=== PATIENT | male | born 1950 | race Caucasian/White ===

== ENCOUNTER 2019-02-27 17:33 | Emergency (ER) | payer MEDICARE, OTHER ==
[~2019-02-27] VITALS: Ht 175.3 cm; Wt 75.0 kg
[~2019-02-27 17:33] MED LIST: ALBU17IN INH; ALPH0.156 OU; ASPI81TA26 PO; ATEN25TA PO; CELE1CAP4 PO; CYCL10TA PO; FLOV50AE INH; HYDR-3716 PO; LATA0.0013 OD; NAPR-885 PO; NORT50CA PO; OMEP40CA97 PO; REST30CA PO; SERT-138 PO; SPIR-10 PO; TOPI200T7 PO; VYTO10TA25 PO
[2019-02-27 18:29] LABS: BASO # 0.1 10^3/uL (0.0-0.2); BASO % 0.9 % (0.0-1.0); EOS # 0.4 10^3/uL (0.0-0.5); EOS % 7.6 % (0.0-3.0); HEMATOCRIT 38.2 % (42.0-52.0); MEAN CORPUSCULAR HEMOGLOBIN 29.1 pg (27.0-33.0); MEAN CORPUSCULAR HGB CONC 31.4 g/dl (32.0-36.5); MEAN CORPUSCULAR VOLUME 92.7 fl (80.0-96.0); MONO # 0.8 10^3/uL (0.0-0.8); MONO % 13.6 % (0.0-5.0); NEUTROPHILS # 2.4 10^3/uL (1.5-8.5); NEUTROPHILS % 42.2 % (36.0-66.0); PLATELET COUNT, AUTOMATED 183 10^3/uL (150-450); RED BLOOD COUNT 4.12 10^6/uL (4.30-6.10); WHITE BLOOD COUNT 5.7 10^3/uL (4.0-10.0)
--- NOTE | 2019-02-27 18:39 | REPVR ---
PROCEDURE INFORMATION: Exam: CT Head Without Contrast Exam date and time: 02/27/2019 5:58 PM Age: 68 years old Clinical history: Pain; Headache; Additional info: Trauma TECHNIQUE: Imaging protocol: Computed tomography of the head without contrast. Radiation optimization: All CT scans at this facility use at least one of these dose optimization techniques: automated exposure control; mA and/or kV adjustment per patient size (includes targeted exams where dose is matched to clinical indication); or iterative reconstruction. COMPARISON: No relevant prior studies available. FINDINGS: Brain: There is mild age-related parenchymal volume loss. White matter changes are demonstrated in the subcortical, centrum semiovale and periventricular white matter consistent with age related small vessel white matter angiopathic gliosis. Ventricles: The degree of ventricular dilatation is normal for age and/or degree of atrophy present. Bones/joints: Unremarkable. No acute fracture. Sinuses: Visualized sinuses are unremarkable. No fluid levels. Mastoid air cells: Visualized mastoid air cells are well aerated. Soft tissues: Unremarkable. Nasal cavity: Nasal polyposis. IMPRESSION: 1. There is mild age-related parenchymal volume loss. White matter changes are demonstrated in the subcortical, centrum semiovale and periventricular white matter consistent with age related small vessel white matter angiopathic gliosis. 2. The degree of ventricular dilatation is normal for age and/or degree of atrophy present. 3. No acute findings. Electronically signed by: Silvio Duvall On 02/27/2019 18:39:14 PM
--- NOTE | 2019-02-27 18:49 | REPVR ---
PROCEDURE INFORMATION: Exam: CT Cervical Spine Without Contrast Exam date and time: 02/27/2019 5:58 PM Age: 68 years old Clinical history: Neck pain; Additional info: Trauma TECHNIQUE: Imaging protocol: Computed tomography images of the cervical spine without contrast. Radiation optimization: All CT scans at this facility use at least one of these dose optimization techniques: automated exposure control; mA and/or kV adjustment per patient size (includes targeted exams where dose is matched to clinical indication); or iterative reconstruction. COMPARISON: CR SPINE CERVICAL W/AP/FLEX/EXT 08/19/2014 9:16 AM FINDINGS: Vertebrae: Reversal of normal cervical lordosis. Slight anterolisthesis of C4 and C5 most likely degenerative. Correlation with clinical exam is suggested to exclude changes related to a ligamentous injury. Multilevel facet joint arthropathy demonstrated as well. Mild levoscoliosis. Discs/Spinal canal/Neural foramina: There are degenerative changes demonstrated in the atlantoaxial joint with osteophytes and joint space narrowing. The transverse ligament thickened. Disc space narrowing at C4-C5, C5-C6, C6-C7 and C7-T1. Disc space narrowing also demonstrated at T1-T2. Prominent intervertebral osteophytes in the mid and lower cervical spine. Mild foraminal narrowing on the right at C2, moderate to severe bilateral foraminal narrowing at C3, severe foraminal narrowing on the right and mild foraminal narrowing on the left at C4, mild bilateral foraminal narrowing at C5, mild foraminal narrowing on the right at C6, and mild foraminal narrowing on the right at C7. There are multilevel disc osteophyte complexes from C3-C4 through C7-T1, most pronounced at C5-C6 where left paracentral disc protrusion mildly impinges on the left hemicord and narrows the proximal ipsilateral neural foramen. Soft tissues: Unremarkable. Mastoid air cells: Partial opacification of the mastoid air cells bilaterally consistent with mild mastoiditis. Lungs: Mild emphysematous changes in both lung apices. IMPRESSION: 1. Partial opacification of the mastoid air cells bilaterally consistent with mild mastoiditis. 2. Slight anterolisthesis of C4 and C5 most likely degenerative. Correlation with clinical exam is suggested to exclude changes related to a ligamentous injury. 3. Degenerative spondylosis with multilevel foraminal stenosis and disc osteophyte complexes as described above. Mild left kanwal cord impingement at C5-C6 as described above. Electronically signed by: Silvio Duvall On 02/27/2019 18:48:46 PM
--- NOTE | 2019-02-27 18:51 | REPVR ---
PROCEDURE INFORMATION: Exam: CT Maxillofacial Without Contrast Exam date and time: 02/27/2019 5:58 PM Age: 68 years old Clinical history: Face pain; Additional info: Trauma TECHNIQUE: Imaging protocol: Computed tomography images of the face without contrast. Radiation optimization: All CT scans at this facility use at least one of these dose optimization techniques: automated exposure control; mA and/or kV adjustment per patient size (includes targeted exams where dose is matched to clinical indication); or iterative reconstruction. COMPARISON: No relevant prior studies available. FINDINGS: Orbits: Orbits are normal. Globes are unremarkable. Mastoid air cells: Bilateral partial opacification of the mastoid sinuses consistent with mild mastoiditis. Sinuses: Mild inflammatory changes in the ethmoid sinuses. Bones/joints: No acute fracture. Nasal cavity: Nasal polyposis. Vasculature: Calcifications intracranial carotid arteries. Soft tissues: Unremarkable. IMPRESSION: No acute findings. Electronically signed by: Silvio Duvall On 02/27/2019 18:51:02 PM
[2019-02-27 19:04] LABS: ACETAMINOPHEN LEVEL < 2.0 UG/ML (10.0-30.0); ALBUMIN 3.7 GM/DL (3.2-5.2); ALT/SGPT 28 U/L (12-78); BILIRUBIN,DIRECT < 0.1 MG/DL (0.0-0.2); BILIRUBIN,TOTAL 0.1 MG/DL (0.2-1.0); BLOOD UREA NITROGEN 8 MG/DL (7-18); CALCIUM LEVEL 8.5 MG/DL (8.8-10.2); CARBON DIOXIDE LEVEL 23 MEQ/L (21-32); CHLORIDE LEVEL 101 MEQ/L (98-107); CK-MB VALUE MASS 2.4 NG/ML (<3.6); CPK CREATINE PHOSPHOKINASE 67 U/L (39-308); CREATININE FOR GFR 0.95 MG/DL (0.70-1.30); GLOMERULAR FILTRATION RATE > 60.0 (>49); GLUCOSE, FASTING 76 MG/DL (70-100); MB/CK RELATIVE INDEX 3.58 (< OR =4); POTASSIUM SERUM 4.4 MEQ/L (3.5-5.1); SALICYLATE LEVEL 2.4 MG/DL (5.0-30.0); SODIUM LEVEL 135 MEQ/L (136-145); TOTAL PROTEIN 7.6 GM/DL (6.4-8.2); TROPONIN I < 0.02 NG/ML (< 0.10); VALPROIC ACID (DEPAKOTE) 20.4 UG/ML (50.0-100.0)
[2019-02-27 19:04] LABS: AMPHETAMINES LEVEL URINE NEGATIVE (NEGATIVE); BARBITURATES URINE NEGATIVE (NEGATIVE); BENZODIAZEPINES URINE NEGATIVE (NEGATIVE); CANNABINOIDS URINE POSITIVE (NEGATIVE); COCAINE METABOLITE URINE NEGATIVE (NEGATIVE); METHADONE URINE NEGATIVE (NEGATIVE); OPIATES URINE POSITIVE (NEGATIVE); PHENCYCLIDINE URINE NEGATIVE (NEGATIVE)
--- NOTE | 2019-02-27 19:21 | REP ---
Portable chest x-ray: Single view. History: Altered mental status. Comparison chest x-ray: November 02, 2005. Findings: There are healed or healing rib fractures at two adjacent anterior ribs on the right and one on the left. No other bony abnormality is seen. The lungs are well inflated and clear. The pleural angles are sharp. Heart size is normal. EKG monitoring electrodes are seen. There is a mild dextroconvex curvature in the thoracic spine. Impression: No active disease. Healed versus healing bilateral rib fractures. Electronically Signed by Todd Hickman MD 02/27/2019 08:05 P
--- NOTE | 2019-02-27 20:23 | ECGEPIP ---
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
[2019-02-27 20:45] VITALS: BP 156/77
--- NOTE | 2019-02-28 08:05 | ED PDOC ---
Post-Departure Follow-Up dr stewart faxed formal report oif ct c spine for fu Yamile Ferro MD Feb 28, 2019 08:05
== END 2019-02-27 21:32 | disposition home or self-care (01) ==
LOC: M ED 17:33 → EDBD 17:33 → M ED 21:32
DX: F10.129 Alcohol abuse with intoxication, unspecified (principal); I45.19 Other right bundle-branch block; J44.9 Chronic obstructive pulmonary disease, unspecified; I10 Essential (primary) hypertension; F33.9 Major depressive disorder, recurrent, unspecified; Z79.899 Other long term (current) drug therapy; Z79.82 Long term (current) use of aspirin; Z88.0 Allergy status to penicillin; Z88.8 Allergy status to other drugs, medicaments and biological substances; F17.210 Nicotine dependence, cigarettes, uncomplicated
CPT/HCPCS: 36415; 70450; 70486; 71045; 72125; 80048; 80076; 80164; 80307; 82140; 82550; 82553; 84443; 84484; 85025; 93005; 93041; 94760; 99285; G0480

== ENCOUNTER 2020-05-15 15:49 | Emergency (ER) | payer MEDICARE ==
[~2020-05-15] VITALS: Ht 175.3 cm; Wt 60.2 kg
[~2020-05-15 15:49] MED LIST changes: +CYCL-707 PO; -CYCL10TA PO
[2020-05-15] MEDS ORDERED: ISOVUE-370 76% 100ML VIAL As Ordered ONE (16:14)
[2020-05-15 16:19] LABS: BASO % 0.7 % (0.0-1.0); EOS # 0.3 10^3/uL (0.0-0.5); EOS % 5.5 % (0.0-3.0); HEMATOCRIT 32.2 % (42.0-52.0); HEMOGLOBIN 9.7 g/dl (13.5-17.5); LYMPH # 1.3 10^3/uL (1.5-5.0); LYMPH % 22.1 % (24.0-44.0); MEAN CORPUSCULAR HEMOGLOBIN 27.7 pg (27.0-33.0); MEAN CORPUSCULAR HGB CONC 30.1 g/dl (32.0-36.5); MONO # 0.6 10^3/uL (0.0-0.8); MONO % 9.6 % (2.0-8.0); NEUTROPHILS # 3.7 10^3/uL (1.5-8.5); NEUTROPHILS % 61.6 % (36.0-66.0); PLATELET COUNT, AUTOMATED 359 10^3/uL (150-450); WHITE BLOOD COUNT 6.1 10^3/uL (4.0-10.0)
[2020-05-15 16:29] LABS: INR 0.97; PROTHROMBIN TIME 13.1 SECONDS (12.5-14.3)
[2020-05-15 16:30] LABS: PARTIAL THROMBOPLASTIN TIME 34.3 SECONDS (24.2-38.5)
[2020-05-15 16:45] VITALS: BP 175/82
--- NOTE | 2020-05-15 16:45 | REP ---
INDICATION: fall injury. COMPARISON: 02/27/2019. TECHNIQUE: CT BRAIN PERFORMED IN THE AXIAL PLANE. CORONAL RECONSTRUCTION IMAGES ARE PERFORMED. FINDINGS: There is [id number] atrophy. There is no midline shift or mass effect. There are mild chronic periventricular small vessel ischemic changes, chronic in nature. There is no acute intracranial hemorrhage. There is no extra-axial fluid collection. There are vascular calcifications in the carotid siphons. There is no fracture of the visualized osseous structures. There is mild mucosal thickening in the left frontoethmoidal region. IMPRESSION: No acute intracranial hemorrhage or skull fracture. Stable chronic changes. <Electronically signed by Mitchel Amato > 05/15/20 [id number]
[2020-05-15 16:52] LABS: ALBUMIN 3.3 GM/DL (3.2-5.2); ALT/SGPT 57 U/L (12-78); BILIRUBIN,DIRECT < 0.1 MG/DL (0.0-0.2); BILIRUBIN,TOTAL 0.1 MG/DL (0.2-1.0); CK-MB VALUE MASS 1.8 NG/ML (<3.6); CPK CREATINE PHOSPHOKINASE 44 U/L (39-308); FREE T4 0.72 NG/DL (0.76-1.46); LIPASE 555 U/L (73-393); MB/CK RELATIVE INDEX 4.09 (< OR =4); NT-PRO BNP 316 PG/ML (<125); TOTAL PROTEIN 7.5 GM/DL (6.4-8.2); TROPONIN I < 0.02 NG/ML (< 0.10)
--- NOTE | 2020-05-15 16:52 | REP ---
INDICATION: fall injury. COMPARISON: 02/27/2019. TECHNIQUE: CT cervical spine performed in the axial plane, with sagittal and coronal reconstruction images performed. FINDINGS: See no evidence of acute fracture or dislocation. There is mild reversal of normal cervical lordosis. There is mild spurring of C3. There is moderate spurring of C4 through T2. There is mild disc space narrowing at C3-4 with moderate narrowing of all levels inferior to that. There is minimal anterior listhesis of C4 unchanged. No abnormal density is seen in the spinal canal. IMPRESSION: No evidence of acute fracture or dislocation. Stable arthritic changes diffusely. <Electronically signed by Mitchel Amato > 05/15/20 [id number]
--- NOTE | 2020-05-15 17:08 | REP ---
INDICATION: chest pain/trauma. COMPARISON: None. TECHNIQUE: CT angiogram chest performed following the intravenous administration of 100 cc of Isovue 370. Sagittal and coronal reconstruction images are performed. FINDINGS: Lungs: There are scattered diffuse bilateral fibro atelectatic changes, right greater than left. There is no pneumothorax. Mediastinum: No adenopathy. Pulmonary arteries: No evidence of pulmonary embolism. Pushpa: No adenopathy. Axilla: No adenopathy. Pleura: No effusion. Heart: Not enlarged. Thoracic aorta: No aneurysm or dissection. Upper abdominal structures: There is diffuse fatty infiltration of the liver. Visualized osseous structures: There are fractures of the right anterolateral 3rd through 7th ribs. The right 4th through 6th ribs are fractured in 2 places. Few other old right rib fractures are seen inferiorly and posteriorly. Several old left inferior fractures are also seen. There are degenerative changes of the spine without compression fracture.. IMPRESSION: No CT evidence of pulmonary embolism. No infiltrate seen. Fibrotic changes with mild right lung atelectatic changes. There are fractures of the right anterolateral 3rd through 7th ribs. The right 4th through 6th ribs are fractured in 2 places. No pneumothorax. No pleural effusion. <Electronically signed by Mitchel Amato > 05/15/20 [id number]
--- NOTE | 2020-05-15 17:13 | REP ---
INDICATION: CHEST PAIN. COMPARISON: 02/27/2019. TECHNIQUE: SINGLE PORTABLE AP VIEW OF THE CHEST WAS PERFORMED. FINDINGS: There are fractures of the right 3rd through 7th ribs. There is mild adjacent parenchymal opacity. There is no pneumothorax or significant pleural effusion. The heart is normal in size. There is mild calcification of the thoracic aorta.There are old inferior left rib fractures. IMPRESSION: Right 3rd through 7th rib fractures. Mild adjacent parenchymal opacity. No pneumothorax or pleural effusion. <Electronically signed by Mitchel Amato > 05/15/20 [id number]
--- NOTE | 2020-05-15 20:35 | ECGEPIP ---
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
== END 2020-05-15 17:10 | disposition left against medical advice (07) ==
LOC: M ED 15:49
DX: R55 Syncope and collapse (principal); R07.9 Chest pain, unspecified; R06.02 Shortness of breath; I10 Essential (primary) hypertension; J44.9 Chronic obstructive pulmonary disease, unspecified; Z79.899 Other long term (current) drug therapy; Z79.82 Long term (current) use of aspirin; Z88.0 Allergy status to penicillin; Z88.8 Allergy status to other drugs, medicaments and biological substances; F17.210 Nicotine dependence, cigarettes, uncomplicated; F12.20 Cannabis dependence, uncomplicated
CPT/HCPCS: 36415; 70450; 71045; 71275; 72125; 80047; 80076; 82077; 82550; 82553; 83690; 83880; 84439; 84443; 84484; 85025; 85610; 85730; 93005; 93041; 94760; 99284; Q9967

== ENCOUNTER 2020-07-18 18:33 | Emergency (ER) | payer MEDICAID, MEDICARE, OTHER ==
[~2020-07-18] VITALS: Ht 175.3 cm; Wt 77.0 kg
[~2020-07-18 18:33] MED LIST changes: +OMEP40CA4 PO; -OMEP40CA97 PO
[2020-07-18 20:13] LABS: AMPHETAMINES LEVEL URINE NEGATIVE (NEGATIVE); BARBITURATES URINE NEGATIVE (NEGATIVE); BENZODIAZEPINES URINE NEGATIVE (NEGATIVE); CANNABINOIDS URINE POSITIVE (NEGATIVE); COCAINE METABOLITE URINE NEGATIVE (NEGATIVE); METHADONE URINE NEGATIVE (NEGATIVE); OPIATES URINE NEGATIVE (NEGATIVE); PHENCYCLIDINE URINE NEGATIVE (NEGATIVE)
[2020-07-18 20:15] LABS: HEMATOCRIT 38.7 % (42.0-52.0); HEMOGLOBIN 12.3 g/dl (13.5-17.5); MEAN CORPUSCULAR HEMOGLOBIN 26.7 pg (27.0-33.0); MEAN CORPUSCULAR HGB CONC 31.8 g/dl (32.0-36.5); MEAN CORPUSCULAR VOLUME 84.1 fl (80.0-96.0); PLATELET COUNT, AUTOMATED 261 10^3/uL (150-450); WHITE BLOOD COUNT 4.8 10^3/uL (4.0-10.0)
[2020-07-18 21:05] LABS: ACETAMINOPHEN LEVEL < 2.0 UG/ML (10.0-30.0); ALBUMIN 4.1 GM/DL (3.2-5.2); ALT/SGPT 115 U/L (12-78); BILIRUBIN,DIRECT 0.2 MG/DL (0.0-0.2); BILIRUBIN,TOTAL 0.4 MG/DL (0.2-1.0); BLOOD UREA NITROGEN 6 MG/DL (7-18); CALCIUM LEVEL 9.4 MG/DL (8.8-10.2); CARBON DIOXIDE LEVEL 21 MEQ/L (21-32); CHLORIDE LEVEL 94 MEQ/L (98-107); CK-MB VALUE MASS < 1.0 NG/ML (<3.6); CPK CREATINE PHOSPHOKINASE 83 U/L (39-308); CREATININE FOR GFR 1.25 MG/DL (0.70-1.30); ETHYL ALCOHOL (ETHANOL) 0.204 % (0.000-0.010); GLOMERULAR FILTRATION RATE > 60.0 (>49); GLUCOSE, FASTING 100 MG/DL (70-100); LIPASE 414 U/L (73-393); POTASSIUM SERUM 4.2 MEQ/L (3.5-5.1); SALICYLATE LEVEL 3.5 MG/DL (5.0-30.0); SODIUM LEVEL 133 MEQ/L (136-145); TOTAL PROTEIN 8.6 GM/DL (6.4-8.2); TROPONIN I < 0.02 NG/ML (< 0.10)
--- NOTE | 2020-07-18 22:43 | REPVR ---
PROCEDURE INFORMATION: Exam: CT Head Without Contrast Exam date and time: 07/18/2020 9:47 PM Age: 69 years old Clinical indication: Altered mental status/memory loss TECHNIQUE: Imaging protocol: Computed tomography of the head without contrast. Radiation optimization: All CT scans at this facility use at least one of these dose optimization techniques: automated exposure control; mA and/or kV adjustment per patient size (includes targeted exams where dose is matched to clinical indication); or iterative reconstruction. COMPARISON: 1. CT Head without contrast 2020-05-15 16:[address] Head without contrast 2019-02-27 17:54 FINDINGS: Brain: Diffuse moderate cerebral age related volume loss. Moderate patchy low attenuation in the white matter compatible with moderate chronic small vessel ischemic disease. No midline shift, mass, fluid collection, or evidence of hemorrhage. Cerebral ventricles: Ventricular enlargement proportional to volume loss. Bones/joints: Unremarkable. No acute fracture. Paranasal sinuses: Visualized sinuses are unremarkable. No fluid levels. Mastoid air cells: Visualized mastoid air cells are well aerated. Soft tissues: Unremarkable. IMPRESSION: Moderate involutional changes, no acute intracranial abnormality. Electronically signed by: Gomez Le On 07/18/2020 22:43:26 PM
--- NOTE | 2020-07-18 22:43 | REPVR ---
PROCEDURE INFORMATION: Exam: XR Chest Exam date and time: 07/18/2020 9:55 PM Age: 69 years old Clinical indication: Shortness of breath; Additional info: SOB TECHNIQUE: Imaging protocol: XR of the chest. Views: 2 views. COMPARISON: 1. MI PORTABLE CHEST X-RAY 2020-05-15 16:[address] ANGIO CHEST 2020-05-15 16:24 3. MI PORTABLE CHEST X-RAY 2019-02-27 18:44 FINDINGS: Lungs: Lucent expanded lungs, evidence for COPD/emphysema. Blunting the right costophrenic sulcus from a small effusion or atelectasis/infiltrate. Pleural spaces: Unremarkable. No pleural effusion. No pneumothorax. Heart/Mediastinum: Unremarkable. No cardiomegaly. Bones/joints: Chronic healed left 10th and 11th rib fracture deformities. Multiple chronic appearing right lateral rib fractures. IMPRESSION: 1. Lucent expanded lungs, evidence for COPD/emphysema. 2. Blunted right costophrenic sulcus from a small effusion or atelectasis/infiltrate. Electronically signed by: Gomez Le On 07/18/2020 22:43:03 PM
[2020-07-18] MEDS ORDERED: ASPIRIN 81 MG CHEW TABLET PO ONE (22:45)
[2020-07-18] MEDS ORDERED: ISOVUE-370 76% 100ML VIAL As Ordered ONE (23:10)
--- NOTE | 2020-07-19 00:05 | REPVR ---
PROCEDURE INFORMATION: Exam: CTA Chest With Contrast Exam date and time: 07/18/2020 11:24 PM Age: 69 years old Clinical indication: Chest pain; Additional info: Chest pain, SOB TECHNIQUE: Imaging protocol: Computed tomographic angiography of the chest with contrast. 3D rendering (Not supervised by radiologist): MIP and/or 3D reconstructed images were created by the technologist. Radiation optimization: All CT scans at this facility use at least one of these dose optimization techniques: automated exposure control; mA and/or kV adjustment per patient size (includes targeted exams where dose is matched to clinical indication); or iterative reconstruction. Contrast material: ISOVUE 370; Contrast volume: 75 ml; Contrast route: INTRAVENOUS (IV); COMPARISON: 1. CT ANGIO CHEST 2020-05-15 16:24 2. CR Chest, 2 view PA, Lat 2020-07-18 21:40 FINDINGS: Pulmonary arteries: No filling defects in the pulmonary arteries to suggest pulmonary emboli. Aorta: Unremarkable. No aortic aneurysm. No aortic dissection. Lungs: Moderate centrilobular pulmonary emphysema. Scattered mild bronchial wall thickening, and peripheral bronchial mucous plugging, question bronchiolitis. Couple small pulmonary nodules, not definitely present on the prior, with a nodule in the right lower lobe measuring 6 mm. Right basilar subsegmental atelectasis. Pleural spaces: Unremarkable. No pneumothorax. No pleural effusion. Heart: Unremarkable. No cardiomegaly. No pericardial effusion. Lymph nodes: Unremarkable. No enlarged lymph nodes. Liver: Enlarged low attenuating liver, evidence of hepatic steatosis. Stomach and bowel: Gastric wall thickening with incomplete distension. Trace density in the dependent gastric fundus could be secondary to an ulcer and contrast extravasation into the stomach versus ingested contents. Bones/joints: Acute right lateral 8-10th rib fracture with adjacent pleural thickening. Chronic appearing right 4th through 7th lateral rib fractures with nonunion. Multiple chronic left-sided rib fracture deformities. Chronic comminuted nonunion sternal fracture. Subjacent and overlying thickening. Soft tissues: Unremarkable. IMPRESSION: 1. No filling defects in the pulmonary arteries to suggest pulmonary emboli. 2. Acute right lateral 8-10th rib fracture with adjacent pleural thickening. 3. Gastric wall thickening with incomplete distension. Trace density in the dependent gastric fundus could be secondary to an ulcer and contrast extravasation into the stomach versus ingested contents. 4. Moderate centrilobular pulmonary emphysema. 5. Scattered mild bronchial wall thickening, and peripheral bronchial mucous plugging, question bronchiolitis. 6. Couple small pulmonary nodules, could be infectious or inflammatory, not definitely present on the prior, with a nodule in the right lower lobe measuring 6 mm. Consider follow-up. 7. Chronic comminuted nonunion sternal fracture. Subjacent and overlying thickening. COMMENTS: As per Fleischner Society guidelines for follow-up and management of pulmonary nodules: For patients at low risk (minimal or absent history of smoking and of other known risk factors), recommend follow-up chest CT at 12 months; if unchanged, no further follow-up. For patient at high risk (history of smoking or of other known risk factors), recommend initial follow-up chest CT at 6-12 months, then at 18-24 months if no interval change. Electronically signed by: Gomez Le On 07/19/2020 00:05:33 AM
[2020-07-19 01:27] LABS: CK-MB VALUE MASS < 1.0 NG/ML (<3.6); CPK CREATINE PHOSPHOKINASE 83 U/L (39-308); TROPONIN I < 0.02 NG/ML (< 0.10)
[2020-07-19] MEDS ORDERED: LORazepam 2 MG/ML VIAL IV STA (02:50)
[2020-07-19] MEDS ORDERED: NS 1,000 ML IV ONE (02:50)
[2020-07-19 05:00] VITALS: BP 187/88
--- NOTE | 2020-07-19 17:48 | ECGEPIP ---
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
--- NOTE | 2020-07-19 17:50 | ECGEPIP ---
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
--- NOTE | 2020-07-20 06:36 | ED PDOC ---
Post-Departure Follow-Up cxr report faxed to Yamile Desai MD July 20, 2020 06:36
== END 2020-07-19 05:42 | disposition home or self-care (01) ==
LOC: M ED 18:33
DX: S22.41XA Multiple fractures of ribs, right side, initial encounter for closed fracture (principal); X58.XXXA Exposure to other specified factors, initial encounter; Y92.89 Other specified places as the place of occurrence of the external cause; F10.239 Alcohol dependence with withdrawal, unspecified; I10 Essential (primary) hypertension; J44.9 Chronic obstructive pulmonary disease, unspecified; Z88.0 Allergy status to penicillin; Z88.8 Allergy status to other drugs, medicaments and biological substances; F12.20 Cannabis dependence, uncomplicated; Z79.899 Other long term (current) drug therapy; Z79.82 Long term (current) use of aspirin
CPT/HCPCS: 70450; 71046; 71275; 80048; 80076; 80143; 80307; 81001; 82077; 82550; 82553; 83690; 84443; 84484; 85027; 85379; 93005; 93041; 94760; 96361; 96374; 99285; J2060; Q9967

== ENCOUNTER 2021-11-11 16:27 | Inpatient (IN) | payer MEDICAID, MEDICARE ==
[~2021-11-11] VITALS: Ht 175.3 cm; Wt 69.9 kg
[~2021-11-11 16:27] MED LIST changes: +EZET-20 PO; -VYTO10TA25 PO
[2021-11-11] MEDS ORDERED: HYDR-3719 PO (17:22)
[2021-11-11] MEDS ORDERED: MELO7.5T35 PO (17:22)
[2021-11-11] MEDS ORDERED: FLUT11IN PO (17:22)
[2021-11-11] MEDS ORDERED: METO1TAB7 PO (17:22)
[2021-11-11] MEDS ORDERED: DIVA500T9 PO (17:22)
[2021-11-11] MEDS ORDERED: TEMA30CA PO (17:22)
[2021-11-11] MEDS ORDERED: NS 1,000 ML IV ONE (17:45)
[2021-11-11 18:58] LABS: BASO % 0.5 % (0.0-1.0); EOS # 0.1 10^3/uL (0.0-0.5); HEMATOCRIT 35.7 % (42.0-52.0); HEMOGLOBIN 11.3 g/dl (13.5-17.5); LYMPH # 0.8 10^3/uL (1.5-5.0); LYMPH % 9.5 % (24.0-44.0); MEAN CORPUSCULAR HEMOGLOBIN 28.5 pg (27.0-33.0); MEAN CORPUSCULAR HGB CONC 31.7 g/dl (32.0-36.5); MEAN CORPUSCULAR VOLUME 90.2 fl (80.0-96.0); MONO % 13.1 % (2.0-8.0); NEUTROPHILS # 5.9 10^3/uL (1.5-8.5); NEUTROPHILS % 75.1 % (36.0-66.0); PLATELET COUNT, AUTOMATED 241 10^3/uL (150-450); RED BLOOD COUNT 3.96 10^6/uL (4.30-6.10); WHITE BLOOD COUNT 7.9 10^3/uL (4.0-10.0)
[2021-11-11 19:08] LABS: INR 0.92; PROTHROMBIN TIME 12.7 SECONDS (12.7-14.5)
[2021-11-11 19:09] LABS: PARTIAL THROMBOPLASTIN TIME 34.7 SECONDS (25.9-37.0)
[2021-11-11 19:35] LABS: CK-MB VALUE MASS 1.3 NG/ML (<3.6); MB/CK RELATIVE INDEX 1.04 (< OR =4)
[2021-11-11] MEDS ORDERED: MIDAZOLAM INJ 2MG/2ML VIAL (J2250 PER 1MG) IV STA (19:37)
[2021-11-11] MEDS ORDERED: NS 1,250 ML in IV 1 EA IV ONE (19:40)
[2021-11-11 19:46] LABS: GLUCOSE, FASTING 107 MG/DL (70-100)
[2021-11-11 19:47] LABS: BLOOD UREA NITROGEN 16 MG/DL (7-18); CALCIUM LEVEL 9.4 MG/DL (8.8-10.2); CARBON DIOXIDE LEVEL 26 MEQ/L (21-32); CHLORIDE LEVEL 97 MEQ/L (98-107); CREATININE FOR GFR 1.18 MG/DL (0.70-1.30); ETHYL ALCOHOL (ETHANOL) 0.004 % (0.000-0.010); FREE T4 0.91 NG/DL (0.76-1.46); GLOMERULAR FILTRATION RATE > 60.0 (>42); MAGNESIUM LEVEL 2.1 MG/DL (1.8-2.4); POTASSIUM SERUM 3.5 MEQ/L (3.5-5.1); SODIUM LEVEL 134 MEQ/L (136-145)
[2021-11-11 20:03] LABS: AMPHETAMINES LEVEL URINE NEGATIVE (NEGATIVE); BARBITURATES URINE NEGATIVE (NEGATIVE); BENZODIAZEPINES URINE NEGATIVE (NEGATIVE); CANNABINOIDS URINE POSITIVE (NEGATIVE); COCAINE METABOLITE URINE NEGATIVE (NEGATIVE); METHADONE URINE NEGATIVE (NEGATIVE); OPIATES URINE NEGATIVE (NEGATIVE); PHENCYCLIDINE URINE NEGATIVE (NEGATIVE)
[2021-11-11] MEDS ORDERED: KETOROLAC 30 MG/ML 1ML VIAL IV ONE ×2 (20:20→21:00)
[2021-11-11] MEDS ORDERED: THIAMINE 100 MG TAB PO SCH (21:00)
[2021-11-11] MEDS ORDERED: ZOLO100T PO (22:03)
[2021-11-11] MEDS ORDERED: HOME MED LIST COMPLETE! XX SCH (22:05)
[2021-11-11] MEDS: LORazepam 2 MG TAB PO PRN ×2 (22:19→23:10)
[2021-11-11 23:55] LABS: RSV AMPLIFICATION NEGATIVE (NEGATIVE)
[2021-11-12] VITALS (30 sets, daily range): BP systolic 112–196; BP diastolic 76–95; O2SAT 91–100
[2021-11-12 01:20] LABS: ALBUMIN 3.8 GM/DL (3.2-5.2); BILIRUBIN,DIRECT 0.2 MG/DL (0.0-0.2); BILIRUBIN,TOTAL 0.5 MG/DL (0.2-1.0); TOTAL PROTEIN 8.1 GM/DL (6.4-8.2)
[2021-11-12] MEDS ORDERED: LORazepam 2 MG TAB PO PRN (01:45)
[2021-11-12] MEDS ORDERED: OXAZEPAM 15MG CAP PO ONE (02:00)
[2021-11-12] MEDS: DIVALPROEX 500MG *ER* TAB PO SCH ×2 (02:18→20:22)
[2021-11-12] MEDS ORDERED: hydrALAZINE 20MG/ML 1ML VIAL (J0360 PER 20MG) IV ONE (05:00)
[2021-11-12 05:09] LABS: BASO % 0.3 % (0.0-1.0); EOS # 0.1 10^3/uL (0.0-0.5); EOS % 1.4 % (0.0-3.0); HEMATOCRIT 36.3 % (42.0-52.0); HEMOGLOBIN 11.7 g/dl (13.5-17.5); LYMPH % 14.7 % (24.0-44.0); MEAN CORPUSCULAR HEMOGLOBIN 28.1 pg (27.0-33.0); MEAN CORPUSCULAR HGB CONC 32.2 g/dl (32.0-36.5); MEAN CORPUSCULAR VOLUME 87.1 fl (80.0-96.0); NEUTROPHILS # 4.5 10^3/uL (1.5-8.5); NEUTROPHILS % 68.1 % (36.0-66.0); PLATELET COUNT, AUTOMATED 185 10^3/uL (150-450); RED BLOOD COUNT 4.17 10^6/uL (4.30-6.10); WHITE BLOOD COUNT 6.6 10^3/uL (4.0-10.0)
[2021-11-12] MEDS: hydrALAZINE 20MG/ML 1ML VIAL (J0360 PER 20MG) IV SCH ×4 (05:31→18:51)
[2021-11-12 05:42] LABS: ALBUMIN 3.9 GM/DL (3.2-5.2); ALT/SGPT 37 U/L (12-78); BILIRUBIN,TOTAL 0.6 MG/DL (0.2-1.0); BLOOD UREA NITROGEN 13 MG/DL (7-18); CALCIUM LEVEL 9.4 MG/DL (8.8-10.2); CARBON DIOXIDE LEVEL 24 MEQ/L (21-32); CHLORIDE LEVEL 100 MEQ/L (98-107); CREATININE FOR GFR 0.97 MG/DL (0.70-1.30); GLOMERULAR FILTRATION RATE > 60.0 (>42); GLUCOSE, FASTING 138 MG/DL (70-100); POTASSIUM SERUM 3.1 MEQ/L (3.5-5.1); SODIUM LEVEL 134 MEQ/L (136-145); TOTAL PROTEIN 7.9 GM/DL (6.4-8.2)
[2021-11-12] MEDS: FLUTICASONE HFA 110 MCG 12 GM INHALER (FLOVENT) INH SCH ×2 (07:26→19:58)
[2021-11-12] MEDS ORDERED: MULTIVITAMINS/MINERALS THERAP 1 TAB PO SCH (09:00)
[2021-11-12] MEDS ORDERED: FOLIC ACID 1MG TAB PO SCH (09:00)
[2021-11-12] MEDS ORDERED: OXAZEPAM 15MG CAP PO SCH ×2 (10:00→14:00)
[2021-11-12] MEDS: LIDOCAINE 5% (LIDODERM) PATCH TD PRN (10:20)
[2021-11-12] MEDS: FOLIC ACID 1MG TAB PO SCH (10:21)
[2021-11-12] MEDS: OMEPRAZOLE 20MG CAP PO SCH (10:23)
[2021-11-12] MEDS: SIMVASTATIN 40 MG TAB PO SCH (10:23)
[2021-11-12] MEDS: SERTRALINE 100 MG TAB PO SCH (10:23)
[2021-11-12] MEDS: EZETIMIBE 10MG TABLET (ZETIA) PO SCH (10:23)
[2021-11-12] MEDS: NORTRIPTYLINE 25 MG CAP PO SCH ×2 (10:23→20:22)
[2021-11-12] MEDS: MULTIVITAMINS/MINERALS THERAP 1 TAB PO SCH (10:24)
[2021-11-12] MEDS: ENOXAPARIN 40MG/0.4ML SYRINGE (J1650 PER 10MG) SC SCH (10:24)
[2021-11-12] MEDS: THIAMINE 100 MG TAB PO SCH (10:24)
[2021-11-12] MEDS: METOPROLOL SUCC (TopROL XL) 50MG **XL** TAB PO SCH (10:28)
[2021-11-12] MEDS ORDERED: POTASSIUM CHLORIDE 10MEQ SR TABLET PO ONE ×2 (12:00→15:00)
[2021-11-12] MEDS ORDERED: NORCO, ANEXSIA 5/325MG TABLET (HYDROcodone/ACETAMINOPHEN) PO PRN (12:40)
[2021-11-12] MEDS: OXAZEPAM 10MG CAP PO SCH ×2 (14:40→21:46)
[2021-11-12] MEDS: **NOTE PATIENT COMMENT** MISC XX SCH (20:22)
[2021-11-13] VITALS (31 sets, daily range): BP systolic 120–161; BP diastolic 82–95; O2SAT 84–99
[2021-11-13] MEDS: OXAZEPAM 10MG CAP PO SCH ×3 (05:45→21:40)
[2021-11-13] MEDS: hydrALAZINE 20MG/ML 1ML VIAL (J0360 PER 20MG) IV SCH ×4 (05:46→19:10)
[2021-11-13] MEDS: FLUTICASONE HFA 110 MCG 12 GM INHALER (FLOVENT) INH SCH ×2 (07:46→19:57)
[2021-11-13 08:04] LABS: BASO % 0.8 % (0.0-1.0); EOS # 0.3 10^3/uL (0.0-0.5); EOS % 6.3 % (0.0-3.0); HEMATOCRIT 35.5 % (42.0-52.0); LYMPH % 18.4 % (24.0-44.0); MEAN CORPUSCULAR HEMOGLOBIN 28.1 pg (27.0-33.0); MEAN CORPUSCULAR VOLUME 90.8 fl (80.0-96.0); MONO # 0.8 10^3/uL (0.0-0.8); MONO % 14.6 % (2.0-8.0); NEUTROPHILS # 3.1 10^3/uL (1.5-8.5); NEUTROPHILS % 59.1 % (36.0-66.0); PLATELET COUNT, AUTOMATED 177 10^3/uL (150-450); RED BLOOD COUNT 3.91 10^6/uL (4.30-6.10); WHITE BLOOD COUNT 5.3 10^3/uL (4.0-10.0)
[2021-11-13 08:26] LABS: ALBUMIN 3.5 GM/DL (3.2-5.2); ALT/SGPT 32 U/L (12-78); BILIRUBIN,TOTAL 0.5 MG/DL (0.2-1.0); BLOOD UREA NITROGEN 18 MG/DL (7-18); CALCIUM LEVEL 9.6 MG/DL (8.8-10.2); CARBON DIOXIDE LEVEL 24 MEQ/L (21-32); CHLORIDE LEVEL 103 MEQ/L (98-107); CREATININE FOR GFR 1.17 MG/DL (0.70-1.30); GLOMERULAR FILTRATION RATE > 60.0 (>42); GLUCOSE, FASTING 97 MG/DL (70-100); POTASSIUM SERUM 3.9 MEQ/L (3.5-5.1); SODIUM LEVEL 135 MEQ/L (136-145); TOTAL PROTEIN 7.3 GM/DL (6.4-8.2)
[2021-11-13] MEDS ORDERED: PREVNAR 13 VACCINE SYRINGE IM.IMMUN ONE (09:00)
[2021-11-13] MEDS: ENOXAPARIN 40MG/0.4ML SYRINGE (J1650 PER 10MG) SC SCH (09:45)
[2021-11-13] MEDS: EZETIMIBE 10MG TABLET (ZETIA) PO SCH (09:46)
[2021-11-13] MEDS: NORTRIPTYLINE 25 MG CAP PO SCH ×2 (09:46→20:31)
[2021-11-13] MEDS: FOLIC ACID 1MG TAB PO SCH (09:46)
[2021-11-13] MEDS: SERTRALINE 100 MG TAB PO SCH (09:46)
[2021-11-13] MEDS: MULTIVITAMINS/MINERALS THERAP 1 TAB PO SCH (09:46)
[2021-11-13] MEDS: SERTRALINE HCL 50 MG TAB PO SCH (09:46)
[2021-11-13] MEDS: OMEPRAZOLE 20MG CAP PO SCH (09:46)
[2021-11-13] MEDS: SIMVASTATIN 40 MG TAB PO SCH (09:46)
[2021-11-13] MEDS: METOPROLOL SUCC (TopROL XL) 50MG **XL** TAB PO SCH (09:47)
[2021-11-13] MEDS: THIAMINE 100 MG TAB PO SCH (09:47)
[2021-11-13] MEDS: **NOTE PATIENT COMMENT** MISC XX SCH ×2 (09:48→20:32)
[2021-11-13] MEDS: LIDOCAINE 5% (LIDODERM) PATCH TD PRN (12:16)
[2021-11-13] MEDS: DIVALPROEX 500MG *ER* TAB PO SCH (20:30)
[2021-11-14] VITALS (10 sets, daily range): BP systolic 140–173; BP diastolic 73–96; O2SAT 93–98
[2021-11-14] MEDS: hydrALAZINE 20MG/ML 1ML VIAL (J0360 PER 20MG) IV SCH ×3 (05:17→12:00)
[2021-11-14] MEDS: OXAZEPAM 10MG CAP PO SCH (05:19)
[2021-11-14 06:56] LABS: BASO % 0.4 % (0.0-1.0); EOS # 0.3 10^3/uL (0.0-0.5); EOS % 3.6 % (0.0-3.0); HEMATOCRIT 31.2 % (42.0-52.0); LYMPH # 0.8 10^3/uL (1.5-5.0); LYMPH % 10.2 % (24.0-44.0); MEAN CORPUSCULAR HGB CONC 32.1 g/dl (32.0-36.5); MEAN CORPUSCULAR VOLUME 90.4 fl (80.0-96.0); MONO # 0.9 10^3/uL (0.0-0.8); MONO % 11.4 % (2.0-8.0); NEUTROPHILS # 5.9 10^3/uL (1.5-8.5); NEUTROPHILS % 73.8 % (36.0-66.0); PLATELET COUNT, AUTOMATED 161 10^3/uL (150-450); RED BLOOD COUNT 3.45 10^6/uL (4.30-6.10)
[2021-11-14 07:34] LABS: ALBUMIN 3.2 GM/DL (3.2-5.2); ALT/SGPT 32 U/L (12-78); BILIRUBIN,TOTAL 0.4 MG/DL (0.2-1.0); BLOOD UREA NITROGEN 19 MG/DL (7-18); CALCIUM LEVEL 9.1 MG/DL (8.8-10.2); CARBON DIOXIDE LEVEL 24 MEQ/L (21-32); CHLORIDE LEVEL 104 MEQ/L (98-107); CREATININE FOR GFR 0.98 MG/DL (0.70-1.30); GLOMERULAR FILTRATION RATE > 60.0 (>42); GLUCOSE, FASTING 108 MG/DL (70-100); MAGNESIUM LEVEL 1.9 MG/DL (1.8-2.4); SODIUM LEVEL 136 MEQ/L (136-145)
[2021-11-14] MEDS: FLUTICASONE HFA 110 MCG 12 GM INHALER (FLOVENT) INH SCH (08:12)
[2021-11-14] MEDS: FOLIC ACID 1MG TAB PO SCH (09:40)
[2021-11-14] MEDS: ENOXAPARIN 40MG/0.4ML SYRINGE (J1650 PER 10MG) SC SCH (09:40)
[2021-11-14] MEDS: OMEPRAZOLE 20MG CAP PO SCH (09:41)
[2021-11-14] MEDS: EZETIMIBE 10MG TABLET (ZETIA) PO SCH (09:41)
[2021-11-14] MEDS: THIAMINE 100 MG TAB PO SCH (09:41)
[2021-11-14] MEDS: SERTRALINE HCL 50 MG TAB PO SCH (09:41)
[2021-11-14] MEDS: SIMVASTATIN 40 MG TAB PO SCH (09:42)
[2021-11-14] MEDS: NORTRIPTYLINE 25 MG CAP PO SCH (09:42)
[2021-11-14] MEDS: SERTRALINE 100 MG TAB PO SCH (09:42)
[2021-11-14] MEDS: METOPROLOL SUCC (TopROL XL) 50MG **XL** TAB PO SCH (09:43)
[2021-11-14] MEDS: MULTIVITAMINS/MINERALS THERAP 1 TAB PO SCH (09:43)
[2021-11-14] MEDS: **NOTE PATIENT COMMENT** MISC XX SCH (09:45)
[2021-11-14] MEDS ORDERED: SERT150C PO (12:49)
[2021-11-14] MEDS ORDERED: THIA100TA PO (12:49)
[2021-11-14] MEDS ORDERED: LIDO5TD TD (12:49)
[2021-11-14] MEDS ORDERED: AMLO1TAB25 PO (12:49)
[2021-11-14] MEDS ORDERED: FOLI1TAB11 PO (12:49)
== END 2021-11-14 15:10 | disposition home health service (06) | DRG 206 ==
LOC: M ED 16:27 → EDBD 16:27 → M ED INP 23:31 → ENRESERV 11-12 00:48 → M PCU 11-12 01:54
PROVIDERS: ADMIT Family Medicine; ATTEND Family Medicine
DX: S22.31XA Fracture of one rib, right side, initial encounter for closed fracture (principal); F10.239 Alcohol dependence with withdrawal, unspecified; F33.1 Major depressive disorder, recurrent, moderate; I10 Essential (primary) hypertension; E78.5 Hyperlipidemia, unspecified; G43.909 Migraine, unspecified, not intractable, without status migrainosus; J44.9 Chronic obstructive pulmonary disease, unspecified; R29.6 Repeated falls; K21.9 Gastro-esophageal reflux disease without esophagitis; Z87.891 Personal history of nicotine dependence; Z20.822 Contact with and (suspected) exposure to COVID-19; W01.0XXA Fall on same level from slipping, tripping and stumbling without subsequent striking against object, initial encounter; Y92.009 Unspecified place in unspecified non-institutional (private) residence as the place of occurrence of the external cause; I16.0 Hypertensive urgency; Z79.899 Other long term (current) drug therapy; Z88.0 Allergy status to penicillin; Z88.8 Allergy status to other drugs, medicaments and biological substances; Z63.8 Other specified problems related to primary support group